=== PATIENT | female | born 1990 | race Asian ===

== ENCOUNTER 2017-02-05 14:10 | Emergency (ER) | payer OTHER ==
[2017-02-05] MEDS ORDERED: Ketorolac INJ* 60 MG/2 ML VIAL IM ONE (14:37)
[2017-02-05] MEDS ORDERED: Cyclobenzaprine TAB* 10 MG PO ONE (14:37)
[2017-02-05 16:15] VITALS: BP 113/76
== END 2017-02-05 15:53 | disposition home or self-care (01) ==
LOC: ED 14:10
DX: S39.012A Strain of muscle, fascia and tendon of lower back, initial encounter (principal); X58.XXXA Exposure to other specified factors, initial encounter; Y93.9 Activity, unspecified; Y92.9 Unspecified place or not applicable; Y99.9 Unspecified external cause status
CPT/HCPCS: 96372; 99282; A9270-GY; J1885